=== PATIENT | male | born 1955 | race Caucasian/White ===

== ENCOUNTER 2019-09-15 10:53 | Emergency (ER) | payer MEDICARE, OTHER ==
[~2019-09-15] VITALS: Ht 175.3 cm; Wt 81.8 kg
[~2019-09-15 10:53] MED LIST: FENO48TA20 PO; METF-960 PO; PIOG45TA4 PO; TELM40 PO
[2019-09-15] MEDS ORDERED: METO25 PO (11:02)
[2019-09-15] MEDS ORDERED: OMEP20 PO (11:02)
[2019-09-15 11:11] LABS: GLUCOSE,POINT OF CARE 107 MG/DL (70-110)
[2019-09-15] MEDS ORDERED: LIDOCAINE 1% 10 ML VIAL INJ ONE (11:30)
[2019-09-15] MEDS ORDERED: POVIDONE-IODINE 10% 15 ML SOLUTION UD TP ONE (11:30)
[2019-09-15] MEDS ORDERED: ACETAMINOPHEN 325 MG TABLET PO ONE (11:30)
[2019-09-15] MEDS ORDERED: PERTUSS(ACELL),DIPH,TET VAC/PF 0.5 ML VIAL IM ONE (11:30)
[2019-09-15] MEDS ORDERED: BACITRACIN 0.9 GM PACKET OINTMENT TP ONE (11:30)
[2019-09-15] MEDS ORDERED: ATOR-2 PO (11:33)
[2019-09-15] MEDS ORDERED: ASPI-1111 PO (11:33)
[2019-09-15] MEDS ORDERED: TAMS-13 PO (11:33)
[2019-09-15] MEDS ORDERED: EMPA10TA PO (11:33)
[2019-09-15] MEDS ORDERED: METO-558 PO (11:33)
[2019-09-15 12:42] VITALS: BP 122/79
== END 2019-09-15 12:44 | disposition home or self-care (01) ==
LOC: EMS 10:58
DX: S51.812A Laceration without foreign body of left forearm, initial encounter (principal); I10 Essential (primary) hypertension; E11.9 Type 2 diabetes mellitus without complications; E78.00 Pure hypercholesterolemia, unspecified; K21.9 Gastro-esophageal reflux disease without esophagitis; F17.210 Nicotine dependence, cigarettes, uncomplicated; Z79.82 Long term (current) use of aspirin; Z79.84 Long term (current) use of oral hypoglycemic drugs; Z79.899 Other long term (current) drug therapy; W26.0XXA Contact with knife, initial encounter; Y93.89 Activity, other specified; Y92.89 Other specified places as the place of occurrence of the external cause; Y99.8 Other external cause status
CPT/HCPCS: 12001; 82962; 90471; 90715; 99283; 99406; J3490